=== PATIENT | female | born 1980 | race Caucasian/White ===

== ENCOUNTER 2017-04-08 11:53 | Inpatient (IN) | payer OTHER ==
[~2017-04-08] VITALS: Ht 170.2 cm; Wt 74.8 kg
[2017-04-08 11:55] VITALS: BP 110/63
--- NOTE | 2017-04-08 12:12 | NUR ---
Patient BIBA BLS, transferred to bed 2. RN evaluating patient at bedside.
--- NOTE | 2017-04-08 12:15 | NUR ---
36 YO FEMALE BIB EMS FROM FIELD FOR ANXIETY AND GENERAL WEAKNESS; DENIES N/V/D; SKIN IS PINK/WARM/DRY; AAOX4 WITH EVEN AND STEADY GAIT; LUNGS CLEAR BL; HR EVEN AND REGULAR; PT DENIES ANY FEVER, CP, SOB, OR COUGH AT THIS TIME; PATIENT STATES PAIN OF 4/10 AT THIS TIME; VSS; PATIENT POSITIONED FOR COMFORT; HOB ELEVATED; BEDRAILS UP X2; BED DOWN. ER MD MADE AWARE OF PT STATUS.
--- NOTE | 2017-04-08 12:19 | NUR ---
Dr. Veronica evaluating patient at bedside.
[2017-04-08] MEDS ORDERED: NACL 0.9% 1,000 ML IV ONE (12:25)
[2017-04-08] MEDS ORDERED: PIPERACILLIN/TAZOBACTAM 3.375 GM in DEXTROSE 5% 50 ML IV ONE (12:25)
[2017-04-08] MEDS ORDERED: LORazepam 2 MG/ML VIAL IVP ONE (12:25)
[2017-04-08] MEDS ORDERED: PIPERACILLIN/TAZOBACTAM 3.375 GM VIAL IV ONE (12:49)
[2017-04-08] MEDS ORDERED: PIPER/TAZO 3.375GM/D5W PREMIX 50 ML IV SCH (12:50)
[2017-04-08 13:04] LABS: APPEARANCE,URINE CLEAR (CLEAR); BILIRUBIN,URINE NEGATIVE (NEGATIVE); BLOOD, URINE NEGATIVE (NEGATIVE); COLOR,URINE YELLOW (YELLOW); LEUKOCYTE ESTERASE ,URINE NEGATIVE (NEGATIVE); NITRITE, URINE NEGATIVE (NEGATIVE); UGLUCOSE NEGATIVE (NEGATIVE)
[2017-04-08 13:31] LABS: HEMATOCRIT 35.5 % (36-48); HEMOGLOBIN 11.5 g/dL (12.0-16.0); MEAN CORPUSCULAR HEMOGLOBIN 25 pg (27-31); MEAN CORPUSCULAR HGB CONC 32 g/dL (33-37); MEAN CORPUSCULAR VOLUME 78 fL (80-94); PLATELET COUNT (AUTO) 516 K/uL (140-450); RED BLOOD CELL COUNT(AUTO) 4.54 MIL/uL (4.20-5.40); RED CELL DISTRIBUTION WIDTH 13.2 % (11.6-13.7); WHITE BLOOD COUNT (AUTO) 8.2 K/uL (4.8-10.8)
[2017-04-08 13:50] LABS: BARBITURATE, URINE NEG. ng/ml (NEG <=200); BENZODIAZEPINE, URINE NEG. ng/mL (NEG <=200); CANNABINOID, URINE NEG. ng/mL (NEG <=50); COCAINE, URINE NEG. ng/mL (NEG <=300); OPIATE, URINE NEG. ng/mL (NEG <=2000); PHENCYCLIDINE SCREEN,URINE NEG. ng/mL (NEG <=25)
[2017-04-08 13:50] LABS: LYMPHOCYTES % (MANUAL) 20 % (20-46); MONOCYTES % (MANUAL) 5 % (5-12)
[2017-04-08 14:15] LABS: ANION GAP 14.5 (8-16); CARBON DIOXIDE 26.2 mmol/L (21-32); CREATININE 0.8 mg/dL (0.6-1.3); POTASSIUM 3.7 mmol/L (3.5-5.1)
[2017-04-08 14:18] LABS: TOTAL BILIRUBIN 0.1 mg/dL (0.0-1.0)
[2017-04-08 14:19] LABS: ALBUMIN 3.1 g/dL (3.4-5.0)
[2017-04-08] MEDS ORDERED: ONDANSETRON 4 MG/2 ML VIAL IVP PRN (14:40)
[2017-04-08] MEDS ORDERED: HYDROcodone/APAP 5/325 MG 1 TAB TAB PO PRN ×2 (14:40)
[2017-04-08] MEDS ORDERED: MORPHINE SULFATE 4 MG/ML SYR IVP PRN (14:40)
[2017-04-08] MEDS ORDERED: ACETAMINOPHEN 325 MG TAB PO PRN (14:40)
--- NOTE | 2017-04-08 16:30 | NUR ---
Patient will be admitted to care of DR HADLEY. Admited to M/S. Will go to room 119B. Belongings list completed. Report to TIANNA CRAWFORD.
[2017-04-08 16:40] VITALS: BP 141/52
--- NOTE | 2017-04-08 16:40 | NUR ---
PATIENT ARRIVED ON UNIT VIA BED/GURNEY. IN STABLE CONDITION, NO DISTRESS NOTED. PATIENT ABLE TO AMBULATE VIA ER BED/GURNEY TO [facility] BED WITH STEADY GAIT. COMPLAINS OF RIGHT LOWER BACK WOUND PAIN. WILL MEDICATE PER ORDERS. RESPIRATIONS EVEN, UNLABORED, ON ROOM AIR. AAOX4, CALM, COOPERATIVE, SKIN COLOR APPROPRIATE TO ETHINICTY, WARM TO TOUCH. HAS OPEN WOUND ON RIGHT LOWER BACK THAT MEASURES 1.2 X 2.0 X 0.5 CM, CLOSED ABSCESS ON B/L BREAST AND LE CELLULITIS. IV SITE ON RIGHT FA IS INTACT, PATENT, AND ON SALINE LOCK. LUNGS CTA ON ALL LOBES. ABDOMEN SOFT, NON-TENDER, NON-DISTENDED. REVIEWED PLAN OF CARE WITH PATIENT. PATIENT VERBALIZED COMPLETE UNDERSTANDING. SAFETY MEASURES IN PLACE, CALL LIGHT WITHIN REACH. WILL CONTINUE TO MONITOR.
[2017-04-08] MEDS: LORazepam 2 MG/ML VIAL IVP PRN (17:49)
--- NOTE | 2017-04-08 17:50 | NUR ---
PATIENT LYING IN BED WITH DINNER TRAY IN FRONT. NO DISTRESS NOTED. MEDICATED PATIENT WITH NORCO. SAFETY MEASURES IN PLACE, CALL LIGHT WITHIN REACH. WILL CONTINUE TO MONITOR.
--- NOTE | 2017-04-08 19:14 | NUR ---
GAVE REPORT TO [employer]OT MILL OPERATOR NURSE FOR CONTINUITY OF CARE. PATIENT IN STABLE CONDITION.
--- NOTE | 2017-04-08 19:15 | NUR ---
RECEIVED BEDSIDE REPORT FROM DAY SHIFT NURSE TY RN, PT STABLE, NO DISTRESS NOTED, SLEEPING EASY TO AROUSE, IV TO R FA 20 G SL, INITIAL ASSESSMENT DONE, ALL SAFETY PRECAUTION MET, CALL LIGHT WITHIN REACH, WILL CONTINUE TO MONITOR.
[2017-04-08] MEDS: MORPHINE SULFATE 2 MG/ML SYR IVP PRN (21:52)
[2017-04-08] MEDS: SULFAMETH/TRIMETH DS 800/160MG 1 TAB PO SCH (23:31)
[2017-04-08] MEDS ORDERED: SULFAMETH/TRIMETH DS 800/160MG 1 TAB ONE (23:37)
[2017-04-09] VITALS: BP 114/63
[2017-04-09] MEDS ORDERED: INFLUENZA VIRUS VACCINE QUAD 0.5 ML SYR IMVAC PRN (01:15)
[2017-04-09] MEDS: MORPHINE SULFATE 2 MG/ML SYR IVP PRN ×2 (02:55→08:40)
--- NOTE | 2017-04-09 02:55 | NUR ---
PT REPORTED HAVING PAIN OF 6/10 ON THE LOWER BACK, PAIN MEDICATION GIVEN, PT TOLERATED WELL, NO DISTRESS NOTED, STABLE, CALL LIGHT WITHIN REACH, WILL CONTINUE TO MONITOR.
[2017-04-09] MEDS: LORazepam 2 MG/ML VIAL IVP PRN (06:12)
--- NOTE | 2017-04-09 06:14 | NUR ---
PT AGITATED, REPORTED HAVING A PANIC ATTACK, V/S WNL (BP 129/78, HR 61) MEDICATION GIVEN, PT RESTING, NO DISTRESS NOTED, CALL LIGHT WITHIN REACH, WILL CONTINUE TO MONITOR.
[2017-04-09 07:01] LABS: BASOPHILS # (AUTO) 0.1 K/uL (0.00-0.22); EOSINOPHILS # (AUTO) 0.1 K/uL (0-0.4); EOSINOPHILS % (AUTO) 1.6 % (0.0-4.0); HEMATOCRIT 33.4 % (36-48); HEMOGLOBIN 11.3 g/dL (12.0-16.0); LYMPHOCYTES # (AUTO) 2.6 K/uL (2.5-16.5); LYMPHOCYTES % (AUTO) 37.6 % (20.5-51.1); MEAN CORPUSCULAR HEMOGLOBIN 26 pg (27-31); MEAN CORPUSCULAR HGB CONC 34 g/dL (33-37); MEAN CORPUSCULAR VOLUME 78 fL (80-94); MONOCYTES # (AUTO) 0.4 K/uL (0.8-1.0); MONOCYTES % (AUTO) 6.4 % (1.7-9.3); NEUTROPHILS # (AUTO) 3.8 K/uL (1.8-7.7); NEUTROPHILS % (AUTO) 53.4 % (42.2-75.2); PLATELET COUNT (AUTO) 447 K/uL (140-450); RED BLOOD CELL COUNT(AUTO) 4.28 MIL/uL (4.20-5.40); RED CELL DISTRIBUTION WIDTH 13.1 % (11.6-13.7)
--- NOTE | 2017-04-09 07:20 | NUR ---
ENDORSEMENT RECEIVED FROM COMMERCIAL LEASING AGENT NURSE. PATIENT'S RESPIRATION EVEN, UNLABOR. SKIN DRY AND WARM. IV PATENT AND INTACT. BED AT LOW POSITION, SIDE RAILS ARE UP. COMPLAINED OF PAIN 6/10 LOWER BACK. WILL MEDICATE PER ORDER. CALL LIGHT WITHIN REACH. WILL CONTINUE TO MONITOR
--- NOTE | 2017-04-09 07:38 | NUR ---
GAVE BEDSIDE REPORT TO DAY SHIFT NURSE ELICEO WYNN, ENDORSED PLAN OF CARE, PT STABLE, NO DISTRESS NOTED, CALL LIGHT WITHIN REACH.
[2017-04-09 07:41] LABS: ALBUMIN 2.8 g/dL (3.4-5.0); ANION GAP 13.5 (8-16); CARBON DIOXIDE 26.3 mmol/L (21-32); CREATININE 0.9 mg/dL (0.6-1.3); POTASSIUM 3.8 mmol/L (3.5-5.1); TOTAL BILIRUBIN 0.1 mg/dL (0.0-1.0)
[2017-04-09 08:00] VITALS: BP 125/70
[2017-04-09] MEDS: SULFAMETH/TRIMETH DS 800/160MG 1 TAB PO SCH (08:41)
--- NOTE | 2017-04-09 08:55 | NUR ---
PATIENT HAS BEEN SCREENED AND CATEGORIZED HIGH NUTRITION RISK. PATIENT WILL BE SEEN WITHIN 1-2 DAYS OF ADMISSION. 04/08/17-04/09/[address]
[2017-04-09] MEDS ORDERED: ENOXAPARIN 40 MG/0.4 ML SYR SUBQ SCH (09:00)
--- NOTE | 2017-04-09 09:10 | NUR ---
WOUND CARE EVALUATION NOTES: REASON FOR EVALUATION: LOWER BACK ABSCESS WOUND COMPLETE SKIN ASSESSMENT DONE ON THIS 36 Y/O FEMALE PATIENT ADMITTED TO [facility], WITH INITIAL DIAGNOSIS OF GENERALIZED WEAKNESS. PAST MEDICAL HISTORY INCLUDE ANXIETY, HEROIN USER. ALL ABOVE INFORMATION WAS OBTAINED FROM THE ADMISSION H&P AND PT. LABS ARE WBC 7.0, H/H 11.3/33.4, GLUCOSE 102, ALBUMIN 2.8. CURRENT MEDS INCLUDE METHADONE,ENOXAPARIN, LORAZEPAM, AND TRIMETHOPRIM. PATIENT IS AWAKE, ALERT, AND ABLE TO FOLLOW COMMANDS. SKIN WARM TO TOUCH WNL, THICKENED TOENAILS, NO EDEMA, NO HAIR GROWTH AND BILATERAL PEDAL PULSES PRESENT. CAPILLARY REFILL <3 SEC. THICKEN CALLUS BILATERAL HEELS. PLAN OF CARE DISCUSSED WITH PT AND PRIMARY NURSE. PT. VERBALIZE UNDERSTANDING. INTEGUMENTARY: LEFT AND RIGHT UPPER CHEST MULTIPLE SMALL ABSCESS WITH SKIN INTACT LARGEST MEASURED 1.5X2CM, PAIN 0/10 POSTERIOR LOWER BACK ABSCESS OPEN WOUND 1X1.5X0.5 CM WOUND BED PALE PINK IN COLOR, SMALL AMOUNT PURULENT DRAINAGE, NO ODOR, WOUND EDGE FLAT, PAIN 0/10 DRYNESS SKIN TO UPPER AND LOWER EXTREMITIES RECOMMENDATIONS: -APPLY BODY LOTION TO ALL EXTREMITIES DRYNESS AREA -CLEANSE POSTERIOR LOWER BACK WOUND WITH NS, PAT DRY, APPLY SILVASORB GEL AND COVER WITH ISLAND DRESSING QD AND PRN IF SOILING -TURN AND REPOSITION PATIENT Q2H -OFFLOAD BILATERAL HEELS BY PLACING PILLOWS UNDER CALVES AT ALL TIMES, UNLESS OTHERWISE CONTRAINDICATED -KEEP SKIN CLEAN AND DRY AT ALL TIMES. RECOMMENDATIONS DISCUSSED WITH PRIMARY RN AND DR. HADLEY PLEASE CONTACT WOUND CARE NURSE FOR ANY CONCERNS AND CHANGES IN WOUND CONDITION
[2017-04-09] MEDS ORDERED: METHADONE 10 MG TAB PO SCH (09:19)
[2017-04-09] MEDS ORDERED: SULF1TAB12 PO (10:45)
[2017-04-09 12:00] VITALS: BP 115/67
--- NOTE | 2017-04-09 12:12 | NUR ---
FAXED INITIAL REVIEW TO [facility] [phone] PHONE TAQU[place]IA [phone]
[2017-04-09] MEDS ORDERED: NACL 0.9% IRR 250 ML BOTTLE IR PRN (12:55)
--- NOTE | 2017-04-09 13:59 | NUR ---
DISCHARGE INSTRUCTION AND PRESCRIPTION WAS GIVEN. PATIENT VERBALIZED UNDERSTANDING. BUS PASS AND RESOURCE PACKAGE WERE GIVEN. IV WAS REMOVED WITH CATHETER TIP INTACT, NO ACTIVE BLEEDING SEEN, PATIENT TOLERATED WELL. ID BAND WAS REMOVED. PATIENT IS STABLE AT THIS TIME. Addendum: 04/09/17 at 1411 by Elly Earl RN PATIENT REFUSED FLU SHOT. PICTURE OF WOUND WAS TAKEN. PATIENT WAS ESCORTED OUT BY STAFF, STEADY GAIT
[2017-04-10] MEDS ORDERED: METHADONE 10 MG TAB PO SCH (09:00)
[2017-04-10] MEDS ORDERED: NACL 0.9% IRR 250 ML BOTTLE IR SCH (11:30)
--- NOTE | 2017-04-10 15:19 | NUR ---
CM NOTE DISCHARGE SUMMARY FAXED TO [facility] / FAX# [phone], ATTN: TAQU[place]IA [phone]
== END 2017-04-09 13:30 | disposition home or self-care (01) | DRG 383 ==
LOC: MED 11:53 → MTU 14:42
PROVIDERS: ADMIT Hospitalist; ATTEND Hospitalist
DX: L02.212 Cutaneous abscess of back [any part, except buttock and flank] (principal); E44.1 Mild protein-calorie malnutrition; F11.23 Opioid dependence with withdrawal; F41.9 Anxiety disorder, unspecified; L03.312 Cellulitis of back [any part except buttock and flank]; F32.9 Major depressive disorder, single episode, unspecified; F43.10 Post-traumatic stress disorder, unspecified; G89.29 Other chronic pain; F17.210 Nicotine dependence, cigarettes, uncomplicated; Z90.49 Acquired absence of other specified parts of digestive tract; Z59.0 Homelessness
CPT/HCPCS: 36415; 71010; 80053; 80305; 81003; 83605; 85025; 86140; 87040; 87081; 96374; 99285; J1650; J2060; J2270; J2405; J2543; J7030